=== PATIENT | female | born 1980 | race Two or more races ===

== ENCOUNTER 2023-04-11 20:12 | Inpatient (IN) | payer OTHER ==
[~2023-04-11] VITALS: Ht 132.1 cm; Wt 94.3 kg
[2023-04-11] MEDS ORDERED: LIPITOR20 MG PO (20:30)
[2023-04-11] MEDS ORDERED: LISINOPRIL20 MG PO (20:30)
[2023-04-11 21:15] LABS: HEMATOCRIT 34.8 % (36.0-45.00); HEMOGLOBIN 11.6 g/dL (12.0-15.00); MEAN CELL VOLUME 86.9 fL (80.00-100.00); MEAN CORPUSCULAR HEMOGLOBIN 28.9 pg (27.00-32.0); MEAN CORPUSCULAR HGB CONC 33.2 g/dl (32.0-36.0); PLATELET COUNT 206 K/uL (150-450); RED CELL DISTRIBUTION WIDTH 14.1 % (11.5-14.5)
[2023-04-11 21:41] LABS: INR 0.98; PARTIAL THROMBOPLASTIN TIME 24.7 SECONDS (22.0-34.0); PROTHROMBIN TIME 10.3 SECONDS (9.0-11.5)
[2023-04-11 21:42] LABS: CALCIUM 8.7 mg/dL (8.5-10.1); CREATININE SERUM 0.7 mg/dL (0.55-1.02); GFR 90.9; POTASSIUM 3.23 mEq/L (3.5-5.1)
[2023-04-11 21:53] LABS: PH,URINE 5.5 (5.0-8.0); URINE APPEARANCE Clear; URINE BILIRRUBIN Negative (NEGATIVE); URINE BLOOD Large; URINE COLOR Yellow; URINE GLUCOSE Negative (NEGATIVE); URINE LEUKOCYTE Negative; URINE NITRATE Negative; URINE PROTEIN Negative (NEGATIVE); URINE UROBILINOGEN 0.2 E.U./dl
[2023-04-11 21:56] LABS: URINE BACTERIA 269.6 uL (0.0-1933); URINE EPITHELIAL CELLS 8.8 uL (0.0-38.8); URINE RBC 115.2 uL (0.0-20.8); URINE WBC 8.9 uL (0.0-23.2)
[2023-04-12 15:51] LABS: HEMATOCRIT 32.5 % (36.0-45.00); HEMOGLOBIN 10.9 g/dL (12.0-15.00); MEAN CELL VOLUME 84.9 fL (80.00-100.00); MEAN CORPUSCULAR HEMOGLOBIN 28.4 pg (27.00-32.0); MEAN CORPUSCULAR HGB CONC 33.5 g/dl (32.0-36.0); PLATELET COUNT 171 K/uL (150-450); RED BLOOD COUNT 3.83 M/uL (4.00-6.00); RED CELL DISTRIBUTION WIDTH 14.3 % (11.5-14.5)
[2023-04-12 15:56] LABS: URINE APPEARANCE Clear; URINE BILIRRUBIN Negative (NEGATIVE); URINE BLOOD Negative; URINE COLOR Yellow; URINE GLUCOSE Negative (NEGATIVE); URINE LEUKOCYTE Negative; URINE NITRATE Negative; URINE PROTEIN Negative (NEGATIVE); URINE UROBILINOGEN 0.2 E.U./dl
[2023-04-12 15:59] LABS: URINE BACTERIA 297.2 uL (0.0-1933); URINE EPITHELIAL CELLS 18.3 uL (0.0-38.8); URINE RBC 16.3 uL (0.0-20.8); URINE WBC 19.1 uL (0.0-23.2)
[2023-04-12 16:05] LABS: ERYTHROCYTE SEDIMENTATION RATE 29 mm/hr
[2023-04-12 16:12] LABS: PARTIAL THROMBOPLASTIN TIME 22.8 SECONDS (22.0-34.0); PROTHROMBIN TIME 10.5 SECONDS (9.0-11.5)
[2023-04-12 16:16] LABS: ALKALINE PHOSPHATASE 84 U/L (50-136); ALT/SGPT 17 U/L (12-78); ANION GAP 10 (10.0-20.0); AST/SGOT 16 U/L (15-37); BILIRUBIN,CONJUGATED < 0.10 mg/dL (0.0-0.2); BLOOD UREA NITROGEN 11 mg/dL (7-18); BUN CREA RATIO 18 (7.0-25.0); CALCIUM 8.3 mg/dL (8.5-10.1); CARBON DIOXIDE 26 mEq/L (21-32); CHLORIDE 106 mmol/L (98-107); CHOL HDL RATIO 3.6 (0-5.0); CHOLESTEROL 160 mg/dL (0-200); CREATININE SERUM 0.62 mg/dL (0.55-1.02); GFR 104.57; GLOBULINA 3.3 G/DL (2.4-3.5); GLUCOSE FASTING 141 mg/dL (65-100); HDL 45 mg/dl (40-60); LDL 89 mg/dl (0-130); OSMOLALITY SERUM 277 MOSM/KG (275-295); POTASSIUM 3.54 mEq/L (3.5-5.1); SODIUM 138 mmol/L (136-145); TOTAL PROTEIN 6.3 gm/dL (6.4-8.2); TRIGLYCERIDES 129 mg/dL (0-150); VLDL 25 (0-39)
[2023-04-12 16:21] LABS: URINE CRYSTALS NEGATIVE /HPF; URINE MUCUS SCANT
[2023-04-12 16:23] LABS: C-REACTIVE PROTEIN 3.22 MG/DL (0.00-0.29)
== END 2023-04-13 13:20 | disposition home or self-care (01) | DRG 399 ==
LOC: ER 20:12 → MEDJ 23:50
PROVIDERS: General Practice; Surgery; ADMIT Internal Medicine; ATTEND Internal Medicine
PROC: BW21ZZZ Computerized Tomography (CT Scan) of Abdomen and Pelvis (ICD-10-PCS; 2023-04-11)
PROC: 0DTJ4ZZ Resection of Appendix, Percutaneous Endoscopic Approach (ICD-10-PCS; principal; 2023-04-12 09:15)
DX: K35.80 Unspecified acute appendicitis (principal); I10 Essential (primary) hypertension

== ENCOUNTER 2024-09-03 17:22 | Emergency (ER) | payer OTHER ==
[~2024-09-03] VITALS: Ht 162.6 cm; Wt 84.8 kg
[~2024-09-03 17:22] MED LIST: LIPITOR20 MG PO; LISINOPRIL20 MG PO
== END 2024-09-03 20:41 | disposition home or self-care (01) ==
LOC: ER 17:22
DX: M25.572 Pain in left ankle and joints of left foot (principal); M77.32 Calcaneal spur, left foot